=== PATIENT | female | born 1980 | race Caucasian/White ===

== ENCOUNTER 2017-01-22 03:50 | Inpatient (IN) ==
--- OUTSIDE RECORDS SUMMARY | 2017-01-22 03:55 | External Medical Summary | Continuity of Care Document ---
:1980 Author Organization [facility] Address [address] [place], [place] [id number] Phone Care Team Providers Name Role Phone Broderick Zepeda MD, FAAFP Unavailable Unavailable Allergies, Adverse Reactions, Alerts Substance Reaction Severity Status No Known Drug Allergies Unknown Active Medications Medication Instructions Dosage Effective Dates Status Comments (start - stop) Reglan 10 mg take 1 tablet by 10 MG - Active tablet oral route 4 times every day 30 minutes before meals and at bedtime 28 mg take 1 tablet by Not Available - Active iron-800 mcg oral route every tablet day Claritin 10 mg take 1 tablet by 10 MG - Active tablet oral route every day Miralax 17 take 15 milliliter 17 G - Active gram/dose oral by ORAL route every powder day as needed Problems Condition Effective Dates (start - stop) Clinical Status Pap Smear Screening, Cervix - Encounter for suprvsn of normal - , first trimester 10 weeks gestation of - 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) w/o abn findings Pap Smear Screening, Cervix Encounter for suprvsn of normal - , first trimester 13 weeks gestation of - Encounter for suprvsn of normal - , second trimester 17 weeks gestation of - Encounter for screening of - mother 20 weeks gestation of - Encounter for suprvsn of normal - , second trimester 20 weeks gestation of - Encounter for suprvsn of normal - , second trimester 24 weeks gestation of - Encounter for suprvsn of normal - , third trimester 28 weeks gestation of - Encounter for suprvsn of normal - , third trimester 30 weeks gestation of - Encounter for suprvsn of normal - , third trimester 32 weeks gestation of - Active Procedures Procedure Date Unknown Results Test Name Date and Time Measure Units Reference Range Abnormal Flag Comments Unknown Advance Directives Directive Yes / No Effective Date File Name Unknown Encounters Encounter Practice Location Reason(s) Diagnoses Date Provider Care Team Description For Visit Members Marcus [place] Encounter for Aug-3 [place] In Womens [facility] of 1 [place] [facility] [employer] [place], normal 7 Medical PO Box , third Center 1522, [email or web address] Dhruv [place], weeks gestation 120, [place], [place], [id number], [place], [place] [id number] tel: , [place]. tel: [phone] Marcus [place] Aug-1 [place] In Womens 8-201 [place]. [facility] [employer] [place], 7 Medical PO Box Center 1522, Dhruv [place], 120, [place], [place], [id number], [place], [place] [id number] tel: , [place]. [address] tel: [phone] Marcus [place] Encounter for Aug-1 [place] In Womens [facility] of 7-201 [place]. 700 [employer] [place], normal 7 Medical PO Box , third Center 1522, [email or web address] Dhruv [place], weeks gestation 120, [place], [place], [id number], [place], [place] [id number] tel: , [place]. [id number] tel: [phone] Marcus [place] Encounter for Aug-0 [place] In Womens [facility] of 3-201 [place]. 700 [facility] [place], normal 7 Medical PO Box , third Center 1522, [email or web address] Dh[place]v [place], weeks gestation 120, [place], [place], [id number], [place] [id number] tel:+ , [place]. tel: [phone] [facility] [place] Encounter for Mendoza-0 [place] In Womens suprvsn of 6-201 [place]. 700 [facility] [place], normal 7 Medical PO Box , Center 1522, second Dhruv [place], [email or web address] 120, [place], weeks gestation [place], [id number], [place] [id number] tel:+ , [place]. tel: [phone] [facility] Encounter for Heri-0 [place] In [place]omens suprvsn of 8-201 [place]. 700 [facility] [place], normal 7 Medical PO Box , Center 1522, second Dhruv [place], [email or web address] 120, [place], weeks gestation [place], [id number], of [place], [place] [id number] tel:+ , [place]. tel: [phone] Marcus [place] Encounter for Heri-0 [place] In Womens Ultrasound 8 [place]. 700 Health [place], screening of 7 Medical PO Box [email or web address] weeks Center 1522, gestation of Dhruv [place], 120, [place], [place], [id number], [place] [id number] tel:+ , [place]. tel: [phone] Marcus [place] Encounter for May-1 [place] In [place]omens suprvsn of 8- [place]. 700 [facility] [place], normal 7 Medical PO Box , Center 1522, second Dhruv [place], [email or web address] 120, [place], weeks gestation [place], , of [place], [place] [id number] tel:+ , [place]. tel: [phone] Marcus [place] Encounter for Apr-2 [place] In Womens suprvsn of 0-201 [place]. 700 [facility] [place], normal 7 Medical PO Box , first Center 1522, [email or web address] Dhruv [place], weeks gestation 120, [place], [place], [id number], [place] [id number] tel:+ , [place]. tel: [phone] Marcus [place] Pap Smear Mar-3 [place] In Womens Screening, 0-201 [facility] 700 Health [place], CervixEncounter 7 Medical PO Box for suprvsn of [place] 1522, normal , Dhruv [place], , first 120, [place], [email or web address] [place], , weeks gestation [place], [place] of tel: , [place]. 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 Health [place], (routine) w/o 5 700 PO Box abn findingsPap Medical 1522, Smear Screening, [facility], Cervix , [facility], 120, [id number], [place], [place], tel: [phone] , [place]. tel: [phone] Marcus [place] Referring In Womens 2-201 [place]. 700 Provider: Health GENEVIEVE, 4 [facility] PO Box [place] Chester Wolfe 1522, , [place] [address] [place], 120, Medical [place], [facility] , [place], Dhruv 120, [place], tel: , [place]. [place], tel: [phone]. [id number] tel:[phone] Marcus [place] Nov- [place] In Womens 7-200 [place]. 700 Health [place], 8 Medical PO Box [place] 1522, Dhruv [place], 120, [place], [place], [id number], [place], [place] [id number] tel: , [place]. tel: [phone] Family History Family Member Diagnosis Age At Onset No family history of Breast Cancer Paternal Grandmother Cardiovascular Disease No family history of Lung Disease No family history of Ovarian Cancer Paternal Grandmother Hypertension No family history of Cardiovascular Disease No family history of Epilepsy No family history of Osteoporosis Maternal Grandfather Prostate Cancer No family history of Kidney Problems Maternal Grandmother Stroke No family history of Thyroid Disorder Paternal Grandmother Diabetes mellitus No family history of Hypertension No family history of Diabetes Maternal Aunt Stroke 50 No family history of Colon Cancer No family history of Uterine Cancer Immunizations Vaccine Date Status Comments Tdap completed Source: New Immunization Record Influenza, injectable, completed Source: New Immunization Record quadrivalent, preservative free, 3 yrs or older Payers Payer name Insurance type Covered green party ID Authorization(s) [facility] CI [id number] [facility] CI [id number] [facility] CI [id number] Social History Type Description Quantity Date Captured Unknown Vital Signs Date / Height Weight BMI Pulse Blood Temperature Respiratory Body Head BMI Time: Rate Pressure Rate Surface Circumference percentile Area Unknown Chief Complaint And Reason For Visit Unknown Chief Complaint And Reason For Visit Reason For Referral Reason For Referral Unknown Plan Of Care Date Type Action Status Appointment Romina Andrade BOOKED Future Order: Lab Order Pap Smear With HPV Reflex If ASCUS Ordered ([id number]) Future Order: Lab Order Pap Smear With HPV Reflex If ASCUS Ordered ([id number]) Future Order: Radiology Order Complete OB Ultrasound > 14 Ordered Weeks (63714) Date Type Problem Goal Intervention Status Start Date Unknown. History Of Present Illness Encounter Date Complaint History Of Present Illness This patient has no known history of present illness Functional Status Encounter Date Functional Assessment Cognitive Assessment Unknown Medications Administered Medication Instructions Dosage Effective Dates (start - stop) Status Comments Drug Treatment Unknown Instructions Date Instruction Additional Information HIV and other routine tests risk factors identified by history anticipated course of care nutrition and weight gain counseling, special diet childbirth classes / hospital facilities hospital registration genetic testing toxoplasmosis precautions (cats / raw meat) sexual activity exercise indications for ultrasound influenza vaccine environmental / work hazards travel use of any medications (including supplements, vitamins, herbs, OTC drugs) domestic violence seat belt use
--- OUTSIDE RECORDS SUMMARY | 2017-01-22 03:55 | External Medical Summary | Continuity of Care Document ---
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) w/o abn findings Pap Smear Screening, Cervix Encounter for suprvsn of normal - , first trimester 13 weeks gestation of - Encounter for suprvsn of normal - , second trimester 24 weeks gestation of - Encounter for suprvsn of normal - , second trimester 17 weeks gestation of - Encounter for suprvsn of normal - , second trimester 20 weeks gestation of - Encounter for suprvsn of normal - , third trimester 28 weeks gestation of - Encounter for suprvsn of normal - , third trimester 30 weeks gestation of - Encounter for screening of - mother 20 weeks gestation of - Active Procedures Procedure Date Unknown Results Test Name Date and Time Measure Units Reference Range Abnormal Flag Comments Panel Description: GLUCOSE TOLERANCE TEST, GESTATIONAL,4SPEC(100G) GLUCOSE, FASTING 08:35:00 69 mg/dL 65-94 N GLUCOSE, 1 HOUR 08:35:00 128 mg/dL <180 N GLUCOSE, 2 HOUR 08:35:00 124 mg/dL <155 N GLUCOSE, 3 HOUR 08:35:00 100 mg/dL <140 N 08:35:00 See Below Tate/Coustan Criteria: Two or more values greater than the above reference intervals are suggestive of gestational diabetes. REPORT COMMENT:FASTING:YESTe st performed at [facility] [id number] [place] [address]Rthjubaq: LEON SPARKS DO,MPH Advance Directives Directive Yes / No Effective Date File Name Unknown Encounters Encounter Practice Location Reason(s) Diagnoses Date Provider Care Team Description For Visit Members Marcus [place] Encounter for Nov- [place] [facility] [place]. [address] [place] [address], normal 7 Medical PO Box , third Center 1522, [email or web address] Dh[place]v [place], weeks gestation 120, [place], [place], [id number], [place], [place] [id number] tel: , [place]. [address] tel: [phone] Marcus [place] Nov-0 [place] In Womens 4-[address], 7 Medical PO Box Center 1522, Dhruv [place], 120, [place], [place], [id number], [place], [place] [id number] tel: , [place]. [address]792 tel: [phone] Marcus [place] Encounter for Aug-0 [place] In Womens suprvsn of 3-201 [place]. 700 Health [place], normal 7 Medical PO Box , third Center 1522, [email or web address] Dhruv [place], weeks gestation 120, [place], [place], [id number], [place], [place] [id number] tel:+ , [place]. tel: [phone] Marcus [place] Encounter for Mendoza-0 [place] In Womens suprvsn of 6-201 [place]. 700 Health [place], normal 7 Medical PO Box , Center 1522, second Dhruv [place], [email or web address] 120, [place], weeks gestation [place], [id number], of [place], [place] [id number] tel:+ , [place]. tel: [phone] Marcus [place] Encounter for Heri-0 [place] In Womens suprvsn of 8-201 [place]. 700 Health [place], normal 7 Medical PO Box , Center 1522, second Dhruv [place], [email or web address] 120, [place], weeks gestation [place], [id number], of [place] [id number] tel:+ , [place]. tel: [phone] Marcus [place] Encounter for Heri-0 [place] In Womens Ultrasound 8-201 [place]. 700 Health [place], screening of 7 Medical PO Box [email or web address] weeks Center 1522, gestation of Dhruv [place], 120, [place], [place], [id number], [place], [place] [id number] tel:+ , [place]. tel: [phone] Marcus [place] Encounter for May-1 [place] In Womens suprvsn of 8-201 [place]. 700 Health [place], normal 7 Medical PO Box , Center 1522, second Dhruv [place], [email or web address] 120, [place], weeks gestation [place], [id number], of [place], [place] [id number] tel:+[phone] , [place]. tel: [phone] Marcus [place] Encounter for Apr-2 [place] In Womens suprvsn of 0-201 [place]. 700 Health [place], normal 7 Medical PO Box , first Center 1522, [email or web address] Dh[place]v [place], weeks gestation 120, [place], [place], [id number], [place], [place] [id number] tel: , [place]. tel: [phone] Marcus [place] Pap Smear Mar-3 [place] In Womens Screening, 0-201 [place]. 700 Health [place], CervixEncounter 7 Medical PO Box for suprvsn of Center 1522, normal , Dhruv [place], , first 120, [place], [email or web address] [place], [id number], weeks gestation [place], [place] of [id number] tel: , [place]. 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 Health [place], (routine) w/o 5 700 PO Box abn findingsPap Medical 1522, Smear Screening, [facility], Cervix , [facility] [place], 120, [id number], [place], [place], tel:[phone] , [place]. tel: [phone] Marcus [place] Feb- [place] Referring In Womens 2-201 [place]. 700 Provider: Health GENEVIEVE, 4 [facility] PO Box [place] Chester R, 1522, Dhruv [place], 120, [facility] [id number], [place], Dhruv 120, [place], tel: , [place]. [place], tel: [phone]. [id number] tel:[phone] Marcus [place] Aug-2 [place] In Womens 7-200 [place]. 700 Health [place], 8 Medical PO Box [place] 1522, Dhruv [place], 120, [place], [place], [id number], [place], [place] [id number] tel: , [place]. tel: [phone] Family History Family Member Diagnosis Age At [...] older Payers Payer name Insurance type Covered constitution party ID Authorization(s) [facility] CI [id number] [facility] CI [id number] [facility] CI [id number] Social History Type Description Quantity Date Captured [...] Complete OB Ultrasound > 14 Ordered Weeks (17604) Date Type Problem Goal Intervention Status Start [...]
--- OUTSIDE RECORDS SUMMARY | 2017-01-22 03:55 | External Medical Summary | Continuity of Care Document ---
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) w/o abn findings Pap Smear Screening, Cervix Encounter for suprvsn of normal - , first trimester 13 weeks gestation of - Encounter for suprvsn of normal - , second trimester 17 weeks gestation of - 20 weeks gestation of - Encounter for screening of - mother Encounter for suprvsn of normal - , second trimester 20 weeks gestation of - Active Procedures Procedure Date OB Visit No Charge Results Test Name Date and Time Measure Units Reference Range Abnormal Flag Comments Unknown Advance Directives Directive Yes / No Effective Date File Name Unknown Encounters Encounter Practice Location Reason(s) Diagnoses Date Provider Care Team Description For Visit Members Marcus [place] Encounter for Mendoza-0 [place] In Womens suprvsn of normal 6-201 [place]. 700 Health [place], , second 7 Medical PO Box [email or web address] weeks Center 1522, gestation of Dhruv [place], 120, [place], [place], [id number], [place], [place] [id number] tel:+ , [place]. tel: [phone] Marcus [place] Encounter for Heri-0 [place] In Womens suprvsn of normal 8-201 [place]. 700 Health [place], , second 7 Medical PO Box [email or web address] weeks Center 1522, gestation of Dhruv [place], 120, [place], [place], [id number], [place], [place] [id number] tel:+ , [place]. tel: [phone] Marcus [place] 20 weeks Heri-0 [place] In Womens Ultrasound gestation of 8-201 [place]. 700 Health [place], pregnancyEncounte 7 Medical PO Box r for Center 1522, screening of Dhruv [place], mother 120, [place], [place], [id number], [place], [place] [id number] tel:+ , [place]. tel: [phone] Marcus [place] Encounter for May-1 [place] In Womens suprvsn of normal 8-201 [place]. 700 Health [place], , second 7 Medical PO Box [email or web address] weeks Center 1522, gestation of Dhruv [place], 120, [place], [place], [id number], [place], [place] [id number] tel:+2 , [place]. tel:[phone] Marcus [place] Encounter for Apr-2 [place] In Womens suprvsn of normal 0-201 [place]. 700 Health [place], , first 7 Medical PO Box [email or web address] weeks Center 1522, gestation of Dhruv [place], 120, [place], [place], [id number], [place], [place] [id number] tel: , [place]. tel: [phone] Marcus [place] Pap Smear Mar-3 [place] In Womens Screening, 0-201 [facility] 700 Health [place], CervixEncounter 7 Medical PO Box for suprvsn of Center 1522, normal , Dhruv [place], first [email or web address] 120, [place], weeks gestation [place], , of [place], [place] [id number] tel: , [place]. 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 Health [place], (routine) w/o abn 5 700 PO Box findingsPap Smear [facility] 1522, Screening, Cervix [facility], 120, [id number], [place], tel:[phone] , [place]. tel: [phone] Marcus [place] Nov-1 [place] Referring In Womens 2-201 [facility] 700 Provider: Health GENEVIEVE, 4 [facility] PO Box Center [place] R, 1522, Dhruv [place], [facility], [facility] [id number], [place], [facility] 120, [place] [id number] [place], tel: , [place]. [place], tel: [phone]. [id number] tel:[phone] Marcus [place] Aug-2 [place] In Womens 7-200 [place]. 700 Health [place], 8 Medical PO Box Center 1522, Dhruv [place], 120, [place] [id number], [place], [place] [id number] tel: , [place]. tel: [phone] Family History Family Member Diagnosis Age At [...] older Payers Payer name Insurance type Covered democrat ID Authorization(s) [facility] CI [id number] [facility] CI [id number] [facility] CI [id number] Social History Type Description Quantity Date Captured Alcohol Use Details No Caffeine Use Details Unknown Tobacco Use Status Unknown Smoking Status Never smoker Vital Signs Date / Height Weight BMI Pulse Blood Temperature Respiratory Body Head BMI Time: Rate Pressure Rate Surface Circumference percentile Area 135.50 24.0 / lbs 0 mm[Hg] 2:44 kg/m PM eter (2) Chief Complaint And Reason For Visit Unknown [...] Complete OB Ultrasound > 14 Ordered Weeks (80874) Date Type Problem Goal Intervention Status Start [...]
--- OUTSIDE RECORDS SUMMARY | 2017-01-22 03:55 | External Medical Summary | Continuity of Care Document ---
:1980 Author Organization [facility] Address [address] [place], [place] [id number] Phone Care Team Providers Name Role Phone Broderick Zepeda MD, FAAFP Unavailable Unavailable Allergies, Adverse Reactions, Alerts Substance Reaction Severity Status No Known Drug Allergies Unknown Active Medications Medication Instructions Dosage Effective Dates Status Comments (start - stop) 28 mg take 1 tablet by Not Available - Active iron-800 mcg oral route every tablet day Claritin 10 mg take 1 tablet by 10 MG - Active tablet oral route every day Miralax 17 take 15 milliliter 17 G - Active gram/dose oral by ORAL route every powder day as needed iron ER 325 mg (65 take 1 by Oral route Not Available - Active mg iron) 2 times every day capsule,extended release Problems Condition Effective Dates (start - stop) Clinical Status Encounter for suprvsn of normal - , third trimester 32 weeks gestation of - Pap Smear Screening, Cervix - Encounter for suprvsn of normal - , first trimester 10 weeks gestation of - Encounter for suprvsn of normal - , third trimester 34 weeks gestation of - 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 [place] 700 Provider: Health GENEVIEVE, normal 7 Medical Boo PO Box , third Center C[place] R, 1522, [email or web address] Dhruv [place], weeks gestation 120, Medical [place], [facility] [place], [facility] 120, [place] [id number] [place], tel: , [place]. [place], tel: [phone]. [id number] tel:[phone] Marcus [place] Encounter for Aug-3 [place] [facility] [place]. 700 Health [place], normal 7 Medical PO Box , third Center 1522, [email or web address] Dhruv [place], weeks gestation 120, [place], of [place], [id number], [place], [place] [id number] tel: , [place]. tel: [phone] Marcus [place] Encounter for Aug-1 [place] In [facility] [place]. 700 Health [place], normal 7 Medical PO Box , third Center 1522, [email or web address] Dhruv [place], weeks gestation 120, [place], of [place], [id number], [place], [place] [id number] tel: , [place]. tel: [phone] Marcus [place] Encounter for Aug-0 [place] In Womens suprvsn of 3-201 [place]. 700 Health [place], normal 7 Medical PO Box , third Center 1522, Dhruv [place], weeks gestation 120, [place], of [place], [id number], [place], [place] [id number] tel: , [place]. tel: [phone] Marcus [place] Encounter for Mendoza-0 [place] In Womens suprvsn of 6-201 [place]. 700 Health [place], normal 7 Medical PO Box , Center 1522, second Dhruv Linton, [email or web address] 120, [place], weeks gestation [place], [id number], of [place], [place] [id number] tel: , [place]. tel: [phone] Marcus [place] Encounter for Heri-0 [place] In Womens suprvsn of 8-201 [place]. 700 Health [place], normal 7 Medical PO Box , Center 1522, second Dhruv Linton, [email or web address] 120, [place], weeks gestation [place], [id number], of [place], [place] [id number] tel: , [place]. tel: [phone] Marcus [place] Encounter for Heir-0 [place] In Womens Ultrasound 8-201 [place]. 700 Health [place], screening of 7 Medical PO Box [email or web address] weeks Center 1522, gestation of Dhruv L[place], 120, [place], [place], [id number], [place], [place] [id number] tel: , [place]. tel: [phone] Marcus [place] Encounter for May-1 [place] In Womens suprvsn of 8-201 [place]. 700 Health [place], normal 7 Medical PO Box , Center 1522, second Dhruv L[place], [email or web address] 120, [place], weeks gestation [place], [id number], of [place], [place] [id number] tel: , [place]. tel: [phone] Marcus [place] Encounter for Apr-2 [place] In Womens suprvsn of 0-201 [place]. 700 Health [place], normal 7 Medical PO Box , first Center 1522, [email or web address] Dhruv [place], weeks gestation 120, [place], of [place], [id number], [place], [place] [id number] tel: , [place]. tel: [phone] Marcus [place] Pap Smear Mar-3 [place] In Womens Screening, 0-201 [facility] 700 Health [place], CervixEncounter 7 Medical PO Box for suprvsn of Center 1522, normal Dhruv [place], , first 120, [place], [email or web address] [place], [id number], weeks gestation [place], [place] of [id number] tel: , [place]. 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 Health [place], (routine) w/o 5 700 PO Box abn findingsPap Medical 1522, Smear Screening, [facility], Cervix Dhruv Linton, 120, [id number], [place], [facility], tel:[phone] , [place]. tel: [phone] Marcus [place] Feb- [place] Referring In Womens 2-201 [place] [address] Provider: Health GENEVIEVE, 4 [facility] [address] [place] [address] 1522, Dhruv Linton, 120, [facility] , [place], Dhruv 120, [place] [id number] [place], tel: , [place]. [place], tel: [phone]. [id number] tel:[phone] Marcus [place] Aug-2 [place] In Womens 7-200 [place]. 700 Health [place], 8 Medical PO Box [address]22, Dhruv Linton, 120, [place], [place] [id number], [place], [place] [id number] tel: , [place]. tel: [phone] Family History Family Member Diagnosis Age At [...] quadrivalent, preservative free, 3 yrs or older Tdap completed Source: New Immunization Record Influenza, injectable, completed Source: New Immunization Record quadrivalent, preservative free, 3 yrs or older Payers Payer name Insurance type Covered democrat ID Authorization(s) [facility] CI [id number] [facility] CI [id number] [facility] CI [id number] [facility] CI [id number] [facility] CI [id number] Social History Type Description Quantity Date Captured Alcohol Use Details No Caffeine Use Details coffee 2 cups per day Tobacco Use Status Never smoked tobacco Smoking Status Never smoker Vital Signs Date / Height Weight BMI Pulse Blood Temperature Respiratory Body Head BMI Time: Rate Pressure Rate Surface Circumference percentile Area 142.30 25.2 / lbs 0 mm[Hg] 8:41 kg/m AM eter (2) Chief Complaint And Reason For [...] Complete OB Ultrasound > 14 Ordered Weeks (61355) Date Type Problem Goal Intervention Status Start [...]
--- OUTSIDE RECORDS SUMMARY | 2017-01-22 03:55 | External Medical Summary | Referral Summary ---
:1980 Author Organization [facility] [address] [place] [address] Care Team Providers Name Role Phone Broderick Zepeda Primary Care Physician Encounter VC Date(s): 05/29/15 - 05/29/15 [facility] [address] [place] [address] [place] Discharge Disposition: 01-Home or Self Care Attending Physician: Broderick Zepeda MD Admitting Physician: Broderick Zepeda MD Vital Signs Most recent to oldest [Reference Range]: 1 Blood Pressure [90-140/60-90 mmHg] 94/52 mmHg (05/29/15 11:37 AM) Problem List Condition Effective Dates Status Health Status Informant Pneumonia(Confirmed) Active Urinary tract infection(Confirmed) Active Varicella(Confirmed) Active Allergies, Adverse Reactions, Alerts No Known Medication Allergies Medications Claritin 10 mg oral tablet 1 tabs, Oral, Daily, # 7 tabs, 0 Refill(s) Start Date: 01/10/14 Status: OrderedNuvaRing 0.120 mg-0.015 mg vaginal ring Each, Insert 1 vaginal ring by vaginal route every month leave in place for 3 weeks, remove for 1 week. Start Date: 01/10/14 Status: Ordered Results No data available for this section Immunizations Vaccine Date Refusal Reason hepatitis A-hepatitis B vaccine 03/20/05 hepatitis A-hepatitis B vaccine 10/18/04 hepatitis A-hepatitis B vaccine 09/19/04 measles/mumps/rubella virus vaccine 02/05/94 tetanus-diphth toxoids (Td) adult/adol 09/19/04 Procedures No data available for this section Social History Social History Type Response Smoking Status Never smoker Assessment and Plan Extracted from: Title: Ambulatory Patient Education Author: Broderick Zepeda MD Date: ENT Strep Throat Strep throat is an infection of the throat caused by a bacteria named Streptococcus pyogenes. Your health care provider may call the infection streptococcal "tonsillitis" or "pharyngitis" depending on w hether there are signs of inflammation in the tonsils or back of the throat. Strep throat is most common in children aged 515 years during the cold months of the year, but it can occur in people of a ny age during any season. This infection is spread from person to person ( contagious) through coughing, sneezing, or other close contact. SIGNS AND SYMPTOMS Fever or chills. Painful, swollen, red tonsils or throat. Pain or difficulty when swallowing. White or yellow spots on the tonsils or throat. Swollen, tender lymph nodes or "glands" of the neck or under the jaw. Red rash all over the body (rare). DIAGNOSIS Many different infections can cause the same symptoms. A test must be done to confirm the diagnosis so the right treatment can be given. A "rapid strep test" can help your health care provider make the diagnosis in a few minutes. If this test is not available, a light swab of the infected area can be used for a throat culture test. If a throat culture test is done, results are usually available in a day or two. TREATMENT Strep throat is treated with antibiotic medicine. HOME CARE INSTRUCTIONS Gargle with 1 tsp of salt in 1 cup of warm water, 34 times per day or as needed for comfort. Family members who also have a sore throat or fever should be tested for strep throat and treated with antibiotics if they have the strep infection. Make sure everyone in your household washes their hands well. Do not share food, drinking cups, or personal items that could cause the infection to spread to others. You may need to eat a soft food diet until your sore throat gets better. Drink enough water and fluids to keep your urine clear or pale yellow. This will help prevent dehydration. Get plenty of rest. Stay home from school, day care, or work until you have been on antibiotics for 24 hours. Take medicines only as directed by your health care provider. Take your antibiotic medicine as directed by your health care provider. Finish it even if you start to feel better. SEEK MEDICAL CARE IF: The glands in your neck continue to enlarge. You develop a rash, cough, or earache. You cough up green, yellow-brown, or bloody sputum. You have pain or discomfort not controlled by medicines. Your problems seem to be getting worse rather than better. You have a fever. SEEK IMMEDIATE MEDICAL CARE IF: You develop any new symptoms such as vomiting, severe headache, stiff or painful neck, chest pain, shortness of breath, or trouble swallowing. You develop severe throat pain, drooling, or changes in your voice. You develop swelling of the neck, or the skin on the neck becomes red and tender. You develop signs of dehydration, such as fatigue, dry mouth, and decreased urination. You become increasingly sleepy, or you cannot wake up completely. MAKE SURE YOU: Understand these instructions. Will watch your condition. Will get help right away if you are not doing well or get worse. Document Released: 04/03/2001 Document Revised: 08/21/2014 Document Reviewed: 06/05/2011 [facility] Patient Information 2015 [facility], [facility]. This information is not intended to replace advice given to you by your health care provider. Make sure you discuss any questions you have with your health care provider. No follow up information was provided. Extracted from: Title: Office Visit Note Author: Broderick Zepeda MD Date: 05/29/15 Assessment/Plan Sore throat Zpack. Strep scr and call results. RTW note given. Ordered: Rapid Strep
--- OUTSIDE RECORDS SUMMARY | 2017-01-22 03:55 | External Medical Summary | Continuity of Care Document ---
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 700 Health [place], , third 7 Medical PO Box [email or web address] weeks Center 1522, gestation of Dhruv [place], 120, [place], [place], [id number], [place], [place] [id number] tel:+ , [place]. tel: [phone] Macrus [place] Encounter for Aug-1 [place] In Womens suprvsn of normal 7-201 [place]. 700 Health [place], , third 7 Medical PO Box [email or web address] weeks Center 1522, gestation of Dhruv [place], 120, [place], [place], [id number], [place], [place] [id number] tel: , [place]. tel: [phone] Marcus [place] Encounter for Aug-0 [place] In Womens suprvsn of normal 3-201 [place]. 700 Health [place], , third 7 Medical PO Box [email or web address] weeks Center 1522, gestation of Dhruv [place], 120, [place], [place], [id number], [place], [place] [id number] tel:[phone] , [place]. tel: [phone] Marcus [place] Encounter for Mendoza-0 [place] In Womens suprvsn of normal 6-201 [place]. 700 Health [place], , second 7 Medical PO Box [email or web address] weeks Center 1522, gestation of Dhruv [place], 120, [place], [place], [id number], [place], [place] [id number] tel:+ , [place]. tel: [phone] Marcus [place] Encounter for Heri-0 [place] In Womens suprvsn of normal 8-201 [place]. 700 Health [place], , second 7 Medical PO Box [email or web address] weeks Center 1522, gestation of Dhruv [place], 120, [place], [place], [id number], [place], [place] [id number] tel:+ , [place]. tel: [phone] Marcus [place] Encounter for Heri-0 [place] In Womens Ultrasound 8-201 [place]. 700 Health PA, screening of 7 Medical PO Box weeks Center 1522, gestation of Dhruv [place], 120, [place], [place], [id number], [place], [place] [id number] tel:+ , [place]. tel: [phone] Marcus [place] 17 weeks May-1 [place] In Womens gestation of 8-201 [place]. 700 Health [place], pregnancyEncounte 7 Medical PO Box r for suprvsn of Center 1522, normal , Dh[place]v [place], second trimester 120, [place], [place], , [place], [place] [id number] tel:+ , [place]. tel: [phone] Marcus [place] Encounter for Apr-2 [place] In Womens suprvsn of normal 0-201 [place]. 700 Health PA, , first 7 Medical PO Box [email or web address] weeks Center 1522, gestation of Dhruv [place], 120, [place], [place], [id number], [place], [place] [id number] tel:+ , [place]. tel: [phone] Marcus [place] Pap Smear Mar-3 [place] In Womens Screening, 0-201 [place]. 700 Health PA, CervixEncounter 7 Medical PO Box for suprvsn of Center 1522, normal , Dhruv [place], first [email or web address] 120, [place], weeks gestation [place], , of [place], [place] [id number] tel: , [place]. tel: [phone] Marcus [place] Encntr for invasive physician Noah In Womens exam (general) 0-201 [place]. Health [place], (routine) w/o abn 5 700 PO Box findingsPap Smear Medical 1522, Screening, Cervix Center Dr [facility], [facility], 120, [id number], [place], [facility], tel: [phone] , [place]. tel: [phone] Marcus [place] Referring In Womens 2-201 [place]. 700 Provider: Health GENEVIEVE, 4 Medical [place] PO Box Center Chester R, 1522, , [address], [facility], Medical [place], [facility] [id number], [place], [facility] 120, [id number] [place], tel: , [place]. [place], tel: [phone]. [id number] tel:[phone] Marcus [place] In Womens 7-200 [place]. 700 Health GENEVIEVE, 8 Medical PO Box Center 1522, , [facility] [place], [facility], [place], [place], [id number], [place], [place] [id number] tel: , [place]. tel: [phone] Family History Family Member Diagnosis Age At [...] older Payers Payer name Insurance type Covered alliance party ID Authorization(s) [facility] CI [id number] [facility] CI [id number] [facility] CI [id number] Social History Type Description Quantity Date Captured Alcohol Use Details No Caffeine Use Details Unknown Tobacco Use Status Unknown Smoking Status Never smoker Vital Signs Date / Height Weight BMI Pulse Blood Temperature Respiratory Body Head BMI Time: Rate Pressure Rate Surface Circumference percentile Area 142.40 25.2 105/63 -2017 lbs 2 mm[Hg] 8:44 kg/m AM eter (2) Chief Complaint And [...] Complete OB Ultrasound > 14 Ordered Weeks (08379) Date Type Problem Goal Intervention Status Start [...]
--- OUTSIDE RECORDS SUMMARY | 2017-01-22 03:55 | External Medical Summary | Referral Summary ---
:1980 Author [facility] Address [address] [place] [address] [place] [address] Care Team Providers Name Role Phone Broderick Zepeda Primary Care Physician Encounter VC Date(s): 09/04/15 - 09/04/15 [facility] [address] [place] [address] [place] Discharge Disposition: 01-Home or Self Care Attending Physician: Broderick Zepeda MD Admitting Physician: Broderick Zepeda MD Vital Signs Most recent to oldest [Reference Range]: 1 Respiratory Rate [14-20 br/min] 18 br/min (09/04/15 10:38 AM) Blood Pressure [90-140/60-90 mmHg] 102/74 mmHg (09/04/15 10:38 AM) Problem List Condition Effective Dates Status [...] for 1 week. Start Date: 01/10/14 Status: OrderedpredniSONE 20 mg oral tablet 20 mg 1 tabs, Oral, Daily, X 5 days, # 5 tabs, 0 Refill(s), Pharmacy: [facility] #[id number], 1 tabs Oral Daily,x5 days Start Date: 09/04/15 Stop Date: 09/09/15 Status: Ordered Results No data available for [...] Patient Education Author: Broderick Zepeda MD Date: Emergency Medicine Acute Bronchitis Bronchitis is inflammation of the airways that extend from the windpipe into the lungs (bronchi). The inflammation often causes mucus to develop. This leads to a cough, which is the most common symptom of bronchitis. In acute bronchitis, the condition usually develops suddenly and goes away over time, usually in a couple weeks. Smoking, allergies, and asthma can make bronchitis worse. Repeated episodes of bronchitis may cause further lung problems. CAUSES Acute bronchitis is most often caused by the same virus that causes a cold. The virus can spread from person to person (contagious) through coughing, sneezing, and touching contaminated objects. SIGNS AND SYMPTOMS Cough. Fever. Coughing up mucus. Body aches. Chest congestion. Chills. Shortness of breath. Sore throat. DIAGNOSIS Acute bronchitis is usually diagnosed through a physical exam. Your health care provider will also ask you questions about your medical history. Tests, such as chest X-rays, are sometimes done to rule out other conditions. TREATMENT Acute bronchitis usually goes away in a couple weeks. Oftentimes, no medical treatment is necessary. Medicines are sometimes given for relief of fever or cough. Antibiotic medicines are usually not need ed but may be prescribed in certain situations. In some cases, an inhaler may be recommended to help reduce shortness of breath and control the cough. A cool mist vaporizer may also be used to help thin bronchial secretions and make it easier to clear the chest. HOME CARE INSTRUCTIONS Get plenty of rest. Drink enough fluids to keep your urine clear or pale yellow (unless you have a medical condition that requires fluid restriction). Increasing fluids may help thin your respiratory secretions (spu gurdeep) and reduce chest congestion, and it will prevent dehydration. Take medicines only as directed by your health care provider. If you were prescribed an antibiotic medicine, finish it all even if you start to feel better. Avoid smoking and secondhand smoke. Exposure to cigarette smoke or irritating chemicals will make bronchitis worse. If you are a smoker, consider using nicotine gum or skin patches to help contro l withdrawal symptoms. Quitting smoking will help your lungs heal faster. Reduce the chances of another bout of acute bronchitis by washing your hands frequently, avoiding people with cold symptoms, and trying not to touch your hands to your mouth, nose, or eyes. Keep all follow-up visits as directed by your health care provider. SEEK MEDICAL CARE IF: Your symptoms do not improve after 1 week of treatment. SEEK IMMEDIATE MEDICAL CARE IF: You develop an increased fever or chills. You have chest pain. You have severe shortness of breath. You have bloody sputum. You develop dehydration. You faint or repeatedly feel like you are going to pass out. You develop repeated vomiting. You develop a severe headache. MAKE SURE YOU: Understand these instructions. Will watch your condition. Will get help right away if you are not doing well or get worse. This information is not intended to replace advice given to you by your health care provider. Make sure you discuss any questions you have with your health care provider. Document Released: 05/14/2005 Document Revised: 08/21/2014 Document Reviewed: 09/27/2013 [facility] Patient Information 2015 [employer]. No follow up information was provided. Extracted from: Title: Office Visit Note Author: Broderick Zepeda MD Date: 09/04/15 Assessment/Plan Acute bronchitis Zpack and prednisone 20mg po daily for five days was given. Cough medsand inhaler offered and declined. A work/school note was offered and deferred by the patient. Ordered: XR Chest 2 Views Cough CXR recommended when williing or if not improved.
--- OUTSIDE RECORDS SUMMARY | 2017-01-22 03:55 | External Medical Summary | Referral Summary ---
:1982 Author Organization [facility], [facility] Address [address] [place] [address] [place] [address] Care Team Providers Name Role Phone Broderick Zepeda Christen Primary Care Physician Encounter VC Date(s): 10/28/14 - 10/28/14 [facility] [place], [address] [place] [address] [place] Discharge Diagnosis: Urine frequency Discharge Diagnosis: Acute UTI (urinary tract infection) Discharge Disposition: 01-Home or Self Care Attending Physician: Richard Arambula DO Admitting Physician: Richard Arambula DO Vital Signs Most recent to oldest [Reference Range]: 1 Temperature Tympanic [36.6-38.1 degC] 36.6 degC (10/28/14 9:46 AM) Peripheral Pulse Rate [60-100 bpm] 65 bpm (10/28/14 9:46 AM) Respiratory Rate [14-20 br/min] 17 br/min (10/28/14 9:46 AM) Blood Pressure [90-140/60-90 mmHg] 118/72 mmHg (10/28/14 9:46 AM) SpO2 100 % (10/28/14 9:46 AM) Problem List Condition Effective Dates Status [...] smoker Assessment and Plan Extracted from: Title: Office Visit Note Author: Richard Arambula DO Date: 10/28/14 Assessment/Plan Acute UTI (urinary tract infection) 1. Bactrim double strength one tablet twice a day for 5 days. 2. May use prcx-yae-tdwzidf Azo one tablet every 8 hours as needed for bladder spasms. 3. Urine sent in for culture and sensitivity. Ordered: sulfamethoxazole-trimethoprim, 1 tabs, Oral, BID, X 5 days, # 10 tabs, 0 Refill(s), Pharmacy: [facility] #[id number] Office Visit Level 3 Est [address]
[2017-01-22] MEDS ORDERED: LIDOCAINE 1% (10mg/ml) 2mL INJ PF SDV ID PRN (03:56)
[2017-01-22] MEDS ORDERED: LR 1,000 ML IV PRN (03:56)
[2017-01-22] MEDS ORDERED: CALCIUM CARBONATE Chewable 500mg TABLET PO PRN ×2 (03:56→07:13)
[2017-01-22] MEDS ORDERED: CARBOPROST 250 MCG/ML INJECTION IM PRN (03:56)
[2017-01-22] MEDS ORDERED: ACETAMINOPHEN 500 MG TABLET PO PRN ×2 (03:56→07:13)
[2017-01-22] MEDS ORDERED: METHYLERGONOVINE 0.2 MG/ML INJECTION IM PRN (03:56)
[2017-01-22] MEDS ORDERED: MAG-AL + SIM ORAL LIQUID 30ml PO PRN ×2 (03:56→07:13)
--- OUTSIDE RECORDS SUMMARY | 2017-01-22 03:56 | External Medical Summary | Continuity of Care Document ---
:1980 Author Organization [facility] Address [address] [place], [place] [id number] Phone Care Team Providers Name Role Phone [...] third trimester 28 weeks gestation of - Pap Smear Screening, Cervix - Encounter for suprvsn of normal - , first trimester 10 weeks gestation of - Encntr for prehemmer exam (general) - (routine) w/o abn findings [...] Reference Range Abnormal Flag Comments Panel Description: Glucose [Mass/volume] in Serum or Plasma --1 hour post 50 g glucose PO GLUCOSE, 147 mg/dL <140 H One hour value of > GESTATIONAL SCREEN 15:35:00 rk=166 mg/dL indicatesthe (50G)-140 CUTOFF need for a diagnostic 75 g dose 2-hour or100 g dose 3-hour oral glucose tolerance test;patient fasting is required.Test performed at [facility] [place] [id number]: LEON SPARKS DO,MPH Panel Description: HEMOGLOBIN + HEMATOCRIT HEMOGLOBIN 15:35:00 10.4 g/dL 11.7-15.5 L HEMATOCRIT 15:35:00 31.9 % 35.0-45.0 L Test performed at [facility] [address] [id number]: LEON SPARKS DO,MPH Advance Directives Directive Yes / No Effective Date File Name Unknown Encounters Encounter Practice Location Reason(s) Diagnoses Date Provider Care Team Description For Visit Members Marcus [place] Encounter for [place] [facility] of [address] [place] [address] [place], normal 7 Medical [address] , [facility] Center 1522, [email or web address] Dhruv [place], weeks gestation 120, [place], [place], [id number], [place], [place] [id number] tel:[phone] , [place]. [phone] tel: [phone] Marcus [place] Encounter for Nov-0 [place] In [facility] of 3-201 [facility] [employer] [place], normal 7 Medical PO Box , third Center 1522, [email or web address] Dhruv [place], weeks gestation 120, [place], of [place], [id number], [place], [place] [id number] tel:+ , [place]. tel:[phone] Marcus [place] Encounter for Mendoza-0 [place] [facility] suprvsn of 6[address] [place]. 700 [facility] [place], normal 7 Medical PO Box , Center 1522, second Dhruv [place], [email or web address] 120, [place], weeks gestation [place], [id number], [place] [id number] tel:+ , [place]. tel: [phone] Marcus Clinton Encounter for Heri-0 [place] [facility] suprvsn of 8-[address] [place]. 700 Health [place], normal 7 Medical PO Box , Center 1522, second Dhruv [place], [id number] 120, [place], weeks gestation [place], [id number], [place] [id number] tel:+ , [place]. tel: [phone] Marcus [place] Encounter for Heri-0 [place] In [facility] Ultrasound 8-[address] [place]. 700 Health [place], screening of 7 Medical PO Box weeks Center 1522, gestation of Dhruv [place], 120, [place], [place], [id number], [place] [id number] tel:+ , [place]. tel: [phone] Marcus [place] Encounter for May-1 [place] [facility] suprvsn of 8[address] [place]. 700 Health [place], normal 7 Medical PO Box , Center [address], second Dhruv [place], 120, [place], weeks gestation [place], [id number], [place] [id number] tel: , [place]. tel:[phone] Marcus [place] Encounter for Apr-2 [place] [facility] suprvsn of 0[address] [place]. 700 Health [place], normal 7 Medical PO Box , first Center 1522, [email or web address] Dhruv [place], weeks gestation 120, [place], [place], [id number], [place] [id number] tel:+ , [place]. tel: [phone] Marcus [place] Pap Smear Mar-3 [place] In [facility] Screening, 0[address] [place]. 700 Health GENEVIEVE, CervixEncounter 7 Medical PO Box for suprvsn of Center 1522, normal , Dhruv Fowler, , first 120, [place], [email or web address] [place], [id number], weeks gestation [place], [place] of [id number] tel: , [place]. tel: [phone] Marcus [place] Encntr for prehemmer Nov-3 [place] In [facility] exam (general) 0-201 [place] [place], (routine) w/o 5 700 PO Box abn findingsPap Medical 1522, Smear Screening, Center Line Malcolm, Cervix , [facility], 120, [id number], [place], [facility], tel:[phone] , [place]. tel: [phone] Marcus Clinton Feb- [place] Referring In Womens 2-201 [facility] 700 Provider: Jennyfer VALLEJO, 4 Medical [place] PO Box Center Line [place] R [address]Dr Dhruv Aquilino Fowler, [facility], Medical [place], [facility] [id number], [place], Dhruv 120, [place], tel: , [place]. [place], tel: [phone]. [id number] tel:[phone] Marcus [place] Aug-2 [place] In Womens 7[address] [place]. 700 Health GENEVIEVE, 8 Medical PO Box Center Line 1522, Dhruv L[place], 120, [place] [id number], [place], [place] [id number] tel: , [place]. tel: [phone] Family History Family Member Diagnosis Age At [...] Insurance type Covered constitution party ID Authorization(s) [facility] [id number] [facility] CI [id number] [facility] CI [id number] Social History Type Description Quantity Date Captured Alcohol Use Details No Caffeine Use Details Unknown Tobacco Use Status Unknown Smoking Status Never smoker Vital Signs Date / Height Weight BMI Pulse Blood Temperature Respiratory Body Head BMI Time: Rate Pressure Rate Surface Circumference percentile Area 143.10 25.3 lbs 5 mm[Hg] 2:38 kg/m PM eter (2) Chief Complaint And [...] Complete OB Ultrasound > 14 Ordered Weeks (15606) Date Type Problem Goal Intervention Status Start [...]
[2017-01-22 04:14] VITALS: BMI 26.1
[2017-01-22] MEDS ORDERED: BENZOCAINE 20% SPRAY 0.5 ML MM ONE (07:13)
[2017-01-22] MEDS ORDERED: HYDROCORTISONE 2.5% CREAM 30gm RECTALLY PRN (07:13)
[2017-01-22] MEDS ORDERED: HYDROCODONE/APAP 5mg/325mg TABLET PO PRN (07:13)
[2017-01-22] MEDS ORDERED: DiphenhydrAMINE 25 MG CAPSULE PO PRN (07:13)
[2017-01-22] MEDS ORDERED: OXYTOCIN DRIP 30 UNIT/500 ML ML IV SCH (07:15)
[2017-01-22] MEDS: IBUPROFEN 800 MG TABLET PO PRN ×2 (07:17→15:17)
[2017-01-22] MEDS: DOCUSATE CALCIUM 240 MG CAPSULE PO SCH ×2 (07:17→10:01)
--- NOTE | 2017-01-22 08:53 | Labor and Delivery Note ---
DATE OF DELIVERY: 01/22/2017 DIAGNOSES 1. 36-year-old white female, G4, P3, at 37.5 weeks gestational age. 2. Spontaneous rupture of membranes. 3. Spontaneous labor. 4. Spontaneous vaginal delivery. 5. OP rotating to OA. 6. Nuchal cord x 1. 7. Female infant, 9/9 Apgars, 2830 g (6 pounds, 3.8 ounces) (Ana Luisa Lawson). This is a patient of mine who came in with spontaneous rupture of membranes approximately 1:40 this morning. She was grossly SROM'd and AmniSure was positive. She was admitted and called 4 cm and an hour later there was no change and she might have felt a little smaller than 4 cm and very posterior. Labor continued and eventually she made it to complete dilation and we began pushing. The rotated from OP to OA. There was bulb suction after delivery of the head and then again after delivery of the body. Cord was allowed to drain for 2 minutes before it was doubly clamped and cut. There was a nuchal cord x 1 that was delivered through. Infant was initially placed on the mother's abdomen. The 's father cut the cord. Placenta delivered spontaneously and was intact. Perineum was intact. At the time of dictation mother and infant are doing well. [facility]
[2017-01-23] MEDS: IBUPROFEN 800 MG TABLET PO PRN (05:48)
[2017-01-23 08:18] VITALS: BP 109/67; PULSE 59; RESP 14; TEMP 98.2; O2SAT 96
--- NOTE | 2017-01-23 08:26 | OB/GYN Progress Note ---
OB-PP Progress Note - General PPD1 Maternal blood type: A+ Maternal Rubella Status: Immune - Subjective Date: 01/23/17 Lochia: Minimal Pain: contolled - Objective Vital Signs: Last Vital Signs Temp 98.2 F 01/23/17 07:00 Pulse 59 L 01/23/17 07:00 Resp 14 01/23/17 07:00 BP 109/67 01/23/17 07:00 Pulse Ox 96 01/23/17 07:00 General: alert and oriented - Assessment Assessment: - Plan Plan: routine care, discharge home, continue PNV
--- NOTE | 2017-01-23 08:29 | Discharge Instructions ---
Discharge Plan - Med Rec/Dispo Prescriptions: Continue Vits W-Ca,Fe,Fa(<1MG) ( Vitamins) 1 tab PO DAILY #0 Polyethylene Glycol 3350 [Miralax] 17 g PO DAILY #0 bottle Ferrous Sulfate [Iron] 1 tab PO WB #0 tab Loratadine [Claritin] 1 tab PO DAILY #0 Discharge Instructions/Outpatient Orders: Final Provider Discharge Instructions Location: Determined By Patient - Disposition 01 Discharged Home, Self-Care
[2017-01-23] MEDS: DOCUSATE CALCIUM 240 MG CAPSULE PO SCH (09:09)
== END 2017-01-23 09:45 | disposition home or self-care (01) | DRG 775 ==
LOC: MC 03:50
PROVIDERS: ADMIT Obstetrics & Gynecology; ATTEND Obstetrics & Gynecology